=== PATIENT | female | born 1985 | race Caucasian/White ===

== ENCOUNTER 2017-12-11 16:50 | Emergency (ER) | payer OTHER ==
[~2017-12-11] VITALS: Ht 175.3 cm; Wt 86.0 kg
[2017-12-11] MEDS ORDERED: ACETAMINOPHEN 325MG TABLET PO STA (17:37)
[2017-12-11] MEDS ORDERED: ACETAMINOPHEN 325MG TABLET PO ONE (17:45)
[2017-12-11 18:54] LABS: BASOPHILS % 0.8 % (0.0-2.0); EOSINOPHILS % 0.7 % (0.0-5.0); HEMATOCRIT. 38.9 % (36.0-48.0); LYMPHOCYTES % 19.6 % (20.0-50.0); MEAN CORPUSCULAR HEMOGLOBIN 27.4 pg (28.0-32.0); MEAN CORPUSCULAR VOLUME 82.1 fL (81.0-99.0); MONOCYTES % 5.7 % (2.0-8.0); NEUTROPHILS % 73.2 % (40.0-76.0); PLATELET 172 x1000/uL (130-400); RED BLOOD CELL COUNT 4.74 mill/uL (4.2-5.4); RED CELL DISTRIBUTION WIDTH 14.5 % (11.6-14.6)
[2017-12-11 19:00] LABS: CHLORIDE 103 mEq/L (98-107)
[2017-12-11 19:01] LABS: PROTHROMBIN TIME 10.6 sec (9.4-11.6)
[2017-12-11 22:57] LABS: CLARITY URINE CLOUDY (CLEAR); COLOR URINE YELLOW (YELLOW); KETONES URINE NEGATIVE (NEGATIVE); LEUKOCYTE ESTERASE URINE 3+ (NEGATIVE); NITRITE URINE NEGATIVE (NEGATIVE); OCCULT BLOOD URINE 3+ (NEGATIVE); PROTEIN URINE 1+ (NEGATIVE); SPECIFIC GRAVITY URINE 1.008 (1.005-1.030); UROBILINOGEN URINE 0.2 E.U./dL (0.2-1.0)
[2017-12-12] MEDS ORDERED: PHENAZOPYRIDINE HCL 100MG TABLET PO ONE
[2017-12-12] MEDS ORDERED: KETOROLAC 60MG/2ML VIAL IM ONE
[2017-12-12] MEDS ORDERED: CEFTRIAXONE SODIUM 1 G/VIAL IM ONE
[2017-12-12 01:10] VITALS: BP 127/90
== END 2017-12-12 01:40 | disposition home or self-care (01) ==
LOC: ER 18:22
DX: N12 Tubulo-interstitial nephritis, not specified as acute or chronic (principal); I10 Essential (primary) hypertension; Z87.442 Personal history of urinary calculi; F17.210 Nicotine dependence, cigarettes, uncomplicated
CPT/HCPCS: 36415; 76770; 80053; 81003; 81025; 83690; 85025; 85610; 96372; 99285; J0696; J1885; 87086

== ENCOUNTER 2018-12-05 18:55 | Emergency (ER) | payer OTHER ==
[~2018-12-05] VITALS: Ht 175.3 cm; Wt 93.0 kg
[2018-12-05] MEDS ORDERED: ONDANSETRON HCL 4MG/2ML INJ IV STA (22:28)
[2018-12-05] MEDS ORDERED: MORPHINE SULFATE 4 MG/ML CPJ (NOT FOR IM USE) IV STA (22:28)
[2018-12-05] MEDS ORDERED: SODIUM CHLORIDE 0.9% 1000ML BAG (SEPSIS BOLUS) IV ONE (22:30)
[2018-12-05] MEDS ORDERED: CEFTRIAXONE 1 G PREMIX 50 ML IV ONE (22:30)
[2018-12-05] MEDS ORDERED: ASPIRIN 325MG TABLET PO ONE (22:45)
[2018-12-05 23:03] LABS: CLARITY URINE CLEAR (CLEAR); COLOR URINE YELLOW (YELLOW); KETONES URINE NEGATIVE (NEGATIVE); NITRITE URINE NEGATIVE (NEGATIVE); OCCULT BLOOD URINE NEGATIVE (NEGATIVE); PROTEIN URINE NEGATIVE (NEGATIVE); SPECIFIC GRAVITY URINE 1.006 (1.005-1.030)
[2018-12-05 23:04] LABS: LEUKOCYTE ESTERASE URINE TRACE (NEGATIVE); UROBILINOGEN URINE 0.2 E.U./dL (0.2-1.0)
[2018-12-05 23:18] LABS: BASOPHILS % 0.4 % (0.0-2.0); EOSINOPHILS % 0.5 % (0.0-5.0); LYMPHOCYTES % 21.1 % (20.0-50.0); MEAN CORPUSCULAR HEMOGLOBIN 27.4 pg (28.0-32.0); MEAN CORPUSCULAR VOLUME 82.1 fL (81.0-99.0); MEAN PLATELET VOLUME 9.2 fl (7.4-10.4); MONOCYTES % 5.5 % (2.0-8.0); NEUTROPHILS % 72.5 % (40.0-76.0); PLATELET 164 x1000/uL (130-400); RED BLOOD CELL COUNT 4.75 mill/uL (4.2-5.4); RED CELL DISTRIBUTION WIDTH 14.2 % (11.6-14.6)
[2018-12-05 23:22] LABS: CHLORIDE 105 mEq/L (98-107)
[2018-12-05 23:24] LABS: PROTHROMBIN TIME 10.2 sec (9.6-11.0)
[2018-12-06] MEDS ORDERED: ACETAMINOPHEN 325MG TABLET PO ONE (00:30)
[2018-12-06] MEDS ORDERED: IBUPROFEN 600MG TABLET PO ONE (07:45)
[2018-12-06 08:20] VITALS: BP 127/86
== END 2018-12-06 08:25 | disposition short-term general hospital (02) ==
LOC: ER 18:55
DX: N39.0 Urinary tract infection, site not specified (principal); A41.9 Sepsis, unspecified organism; R07.9 Chest pain, unspecified; F17.200 Nicotine dependence, unspecified, uncomplicated; Z71.6 Tobacco abuse counseling
CPT/HCPCS: 36415; 71045; 80053; 81003; 81025; 83605; 84145; 84484; 85025; 85610; 87040; 87086; 93005; 96365; 96366; 96375; 99291; 99406; J0696; J2405; J7030; Z7610

== ENCOUNTER 2020-11-28 16:39 | Emergency (ER) | payer OTHER ==
[~2020-11-28] VITALS: Ht 172.7 cm; Wt 91.0 kg
[2020-11-28] MEDS ORDERED: IBUPROFEN 400MG TABLET PO ONE (18:15)
[2020-11-28 19:30] VITALS: BP 151/93
[2020-11-28] MEDS ORDERED: IBUP-2029 MT (20:19)
== END 2020-11-28 20:23 | disposition home or self-care (01) ==
LOC: ER 16:49
DX: M79.601 Pain in right arm (principal); M25.521 Pain in right elbow; Z98.890 Other specified postprocedural states; Z79.899 Other long term (current) drug therapy
CPT/HCPCS: 73070; 73100; 81025; 99284

== ENCOUNTER 2025-06-11 08:43 | Emergency (ER) | payer OTHER ==
[~2025-06-11] VITALS: Ht 167.6 cm; Wt 91.0 kg
[~2025-06-11 08:43] MED LIST: IBUP-1455 MT
[2025-06-11 08:45] VITALS: O2SAT 98
[2025-06-11] MEDS: ACETAMINOPHEN 500MG TABLET PO ONE (09:37)
[2025-06-11] MEDS ORDERED: IBUP-2030 MT (09:46)
[2025-06-11 10:00] VITALS: BP 137/88; PULSE 62; RESP 18; TEMP 36.8; O2SAT 98
== END 2025-06-11 10:15 | disposition home or self-care (01) ==
LOC: ER 08:49
DX: M72.2 Plantar fascial fibromatosis (principal); M25.571 Pain in right ankle and joints of right foot
CPT/HCPCS: 73610; 99283